=== PATIENT | male | born 1985 | race African-American/Black ===

== ENCOUNTER 2016-12-20 08:10 | Day surgery (SDC) | payer OTHER ==
[2016-12-18 11:35] VITALS: BMI 27.6
[~2016-12-20 08:10] MED LIST: LACTATED RINGERS 1,000 ML IV SCH; LIDOCAINE 1% 20 ML VIAL (10MG/ML) FOR IV START INTRADERMA PRN
[2016-12-20 08:29] VITALS: RESP 16; TEMP 96.8
[2016-12-20] MEDS ORDERED: fentaNYL (PF) 50 MCG/ML 2 ML AMP ONE (10:11)
[2016-12-20] MEDS ORDERED: MIDAZOLAM 2 MG/2 ML VIAL ONE (10:11)
[2016-12-20] MEDS ORDERED: PROPOFOL 10 MG/ML 20 ML VIAL IV ONE (10:11)
--- NOTE | 2016-12-20 10:30 | P.GSHP ---
History of Present Illness H&P Date: 12/20/16 Chief Complaint: GI bleed, abdominal pain This is a 31-year-old male referred from Dr. Jayro Tavera. Patient presents today for EGD and colonoscopy. He's had issues with rectal bleeding and epigastric dull pain. Past Medical History Additional Past Medical History / Comment(s): HAS BEEN HAVING EPISODES OF BLOODY STOOLS FOR THE PAST 3 WEEKS, ALONG WITH HEARTBURN AND ABD. PAIN History of Any Multi-Drug Resistant Organisms: None Reported Additional Past Surgical History / Comment(s): COLONOSCOPY AND EGD Past Anesthesia/Blood Transfusion Reactions: No Reported Reaction Past Psychological History: ADD/ADHD Smoking Status: Current every day smoker Past Alcohol Use History: Occasional Additional Past Alcohol Use History / Comment(s): SMOKES 1/2 PPD SINCE 2012 Past Drug Use History: None Reported - Past Family History Mother Family Medical History: No Reported History Medications and Allergies Home Medications Medication Instructions Recorded Confirmed Type Lisdexamfetamine Dimesylate 40 mg PO QAM 12/18/16 12/20/16 History [Charlie] Allergies Allergy/AdvReac Type Severity Reaction Status Date / Time No Known Allergies Allergy Verified 12/18/16 11:31 Surgical - Exam Vital Signs Temp Pulse Resp BP Pulse Ox 96.8 F L 69 16 133/86 99 12/20/16 08:27 12/20/16 08:27 12/20/16 08:27 12/20/16 08:27 12/20/16 08:27 - General well developed, no distress - Eyes PERRL - ENT normal pinna - Neck no masses - Respiratory normal expansion - Cardiovascular Rhythm: regular - Abdomen Abdomen: soft Assessment and Plan Plan: GI bleed, rectal bleeding abdominal pain. We'll perform EGD colonoscopy.
--- NOTE | 2016-12-20 10:45 | P.OP ---
Date of Procedure: 12/20/16 Preoperative Diagnosis: GI bleed, epigastric dull pain Postoperative Diagnosis: Antral gastritis Duodenitis Hiatal hernia Esophagitis Normal colon Procedure(s) Performed: EGD Colonoscopy Anesthesia: MAC Surgeon: Hai Bustos Pathology: other (Duodenum, antrum, esophagus) Condition: stable Disposition: PACU Description of Procedure: PROCEDURE: The patient was placed on the endoscopy table in the lateral position. Digital rectal examination was performed which revealed no abnormalities. The prostate was symmetrical without nodules. Flexible colonoscope was then placed in the patient's anus and passed throughout the entire colon. The ileocecal valve was visualized. The cecum, ascending, transverse, descending and sigmoid colon were normal. The rectum was normal as well. There were no masses, polyps or diverticula noted in the entire colon. Next the gastroscope placed oropharynx and passed into the esophagus and into the stomach. Scope was then placed through the pylorus. The first and second portion of the appeared mildly inflamed a biopsies performed. Scope was then brought back the antrum and there is evidence of mild ulceration of the antrum this area is biopsied. The scope was then retroflexed and the remainder of the stomach appeared normal. There was a hiatal hernia seen. The GE junction was at 40 cm. The distal esophagus appeared mildly inflamed and a biopsies performed. The proximal esophagus. Normal. Scope was withdrawn for patient.
[2016-12-20 11:17] VITALS: BP 137/79; PULSE 70
== END 2016-12-20 11:44 | disposition home or self-care (01) ==
LOC: ORWHC2ENDO 08:10
PROVIDERS: ATTEND Surgery
DX: K20.0 Eosinophilic esophagitis (principal); K29.50 Unspecified chronic gastritis without bleeding; K44.9 Diaphragmatic hernia without obstruction or gangrene; K29.80 Duodenitis without bleeding; K62.5 Hemorrhage of anus and rectum; F17.200 Nicotine dependence, unspecified, uncomplicated; F90.9 Attention-deficit hyperactivity disorder, unspecified type; Z79.899 Other long term (current) drug therapy
CPT/HCPCS: 45378; 43239; J2250; J3010; J2704; 88305; 88342

== ENCOUNTER 2019-07-12 03:44 | Emergency (ER) | payer BC, OTHER ==
[2019-07-12 03:57] VITALS: RESP 18; TEMP 98.2
--- NOTE | 2019-07-12 05:02 | ED ---
Wound/Laceration HPI - General Chief Complaint: Wound/Laceration Stated Complaint: leg lac Time Seen by Provider: 07/12/19 03:47 Source: patient Mode of arrival: ambulatory Limitations: no limitations - History of Present Illness Initial Comments: This patient is 33-year-old man who presents to be evaluated for a laceration to the right lower leg. Patient states that he was descending on a ladder and struck his gaxiola against the edge of the ladder. He states that this caused a cut to the leg and that it would not stop bleeding at home so he presented here for evaluation. The patient does believe that his last tetanus shot was between 5 and 10 years ago. He is declining to have one tonight. The patient denies weakness or numbness distal to the injury. No other injury -: hour(s) Extremity Location: Right: Lower Leg Place: home Patient Tetanus UTD: Yes Context: accidental Associated Symptoms: none Treatments Prior to Arrival: bandage - Related Data Home Medications Medication Instructions Recorded Confirmed Lisdexamfetamine Dimesylate 40 mg PO QAM 12/18/16 12/20/16 [Vyvanse] Previous Rx's Medication Instructions Recorded Omeprazole 40 mg PO DAILY #60 capsule. 12/20/16 Allergies Allergy/AdvReac Type Severity Reaction Status Date / Time No Known Allergies Allergy Verified 07/12/19 03:54 Review of Systems ROS Statement: Those systems with pertinent positive or pertinent negative responses have been documented in the HPI. ROS Other: All systems not noted in ROS Statement are negative. Musculoskeletal: Denies: joint swelling, arthralgia Skin: Reports: as per HPI (Laceration) Hematological/Lymphatic: Denies: easy bleeding Past Medical History Additional Past Medical History / Comment(s): HAS BEEN HAVING EPISODES OF BLOODY STOOLS FOR THE PAST 3 WEEKS, ALONG WITH HEARTBURN AND ABD. PAIN History of Any Multi-Drug Resistant Organisms: None Reported Additional Past Surgical History / Comment(s): COLONOSCOPY AND EGD Past Anesthesia/Blood Transfusion Reactions: No Reported Reaction Past Psychological History: ADD/ADHD Smoking Status: Current every day smoker Past Alcohol Use History: Occasional Past Drug Use History: None Reported - Past Family History Mother Family Medical History: No Reported History General Exam Limitations: no limitations General appearance: alert, in no apparent distress Extremities exam: Present: normal capillary refill. Absent: tenderness Skin exam: Present: warm, dry, normal color, other (Approximately 2.5 cm laceration to the pretibial area of the right leg. No neurovascular deficit.). Absent: rash Course Vital Signs 07/12/19 03:52 Temperature 98.2 F Pulse Rate 93 Respiratory 18 Rate Blood Pressure 158/108 O2 Sat by Pulse 98 Oximetry Procedures - Laceration Laceration #1 Consent Obtained: verbal consent Indication: laceration Site: lower extremity Description: linear Depth: simple, single layer Anesthetic Used: lidocaine 1% Anesthesia Technique: local infiltration Type of Sutures: nylon Size of Sutures: 4-0 Number of Sutures: 3 Technique: simple, interrupted Patient Tolerated Procedure: well, no complications Disposition Clinical Impression: Laceration Disposition: HOME SELF-CARE Condition: Good Instructions (If sedation given, give patient instructions): Laceration (DC) Is patient prescribed a controlled substance at d/c from ED?: No Referrals: Jayro Kaufman DO [Primary Care Provider] - 1-2 days
[2019-07-12] MEDS ORDERED: LIDOCAINE 1% INJ 10MG/ML (20 ML MDV) SQ ONE (05:27)
[2019-07-12 05:54] VITALS: BP 155/96; PULSE 90
== END 2019-07-12 05:54 | disposition home or self-care (01) ==
LOC: EC 03:44
DX: S81.811A Laceration without foreign body, right lower leg, initial encounter (principal); F90.9 Attention-deficit hyperactivity disorder, unspecified type; F17.200 Nicotine dependence, unspecified, uncomplicated; Z79.899 Other long term (current) drug therapy; W26.8XXA Contact with other sharp object(s), not elsewhere classified, initial encounter
CPT/HCPCS: 99282; 12001; J2001

== ENCOUNTER 2019-10-26 10:37 | Day surgery (SDC) | payer BC ==
[2019-10-23 09:28] VITALS: BMI 28.0
[~2019-10-26 10:37] MED LIST changes: -LIDOCAINE 1% 20 ML VIAL (10MG/ML) FOR IV START INTRADERMA PRN
[2019-10-26 11:00] VITALS: TEMP 96.6
[2019-10-26] MEDS ORDERED: LIDOCAINE 1% (10MG/ML) FOR IV START INTRADERMA ONE (11:05)
--- NOTE | 2019-10-26 11:55 | P.GSHP ---
History of Present Illness H&P Date: 10/26/19 Chief Complaint: GERD, GI bleed This is a 33-year-old male who presents today for EGD and colonoscopy. Patient history of GERD. And GI bleed Bleed. Past Medical History Additional Past Medical History / Comment(s): HAS BEEN HAVING EPISODES OF BLOODY STOOLS FOR THE PAST 3 WEEKS, ALONG WITH HEARTBURN AND ABD. PAIN History of Any Multi-Drug Resistant Organisms: None Reported Additional Past Surgical History / Comment(s): COLONOSCOPY AND EGD Past Anesthesia/Blood Transfusion Reactions: No Reported Reaction Smoking Status: Current every day smoker - Past Family History Mother Family Medical History: No Reported History Medications and Allergies Home Medications Medication Instructions Recorded Confirmed Type Lisdexamfetamine Dimesylate 40 mg PO QAVivian 12/18/16 10/26/19 History [Vyvanse] Omeprazole 40 mg PO DAILY #60 capsule. 12/20/16 10/26/19 Rx Allergies Allergy/AdvReac Type Severity Reaction Status Date / Time No Known Allergies Allergy Verified 10/23/19 09:21 Surgical - Exam Vital Signs Temp Pulse Resp BP Pulse Ox 96.6 F L 73 16 153/96 100 10/26/19 10:52 10/26/19 10:52 10/26/19 10:52 10/26/19 10:52 10/26/19 10:52 - General well developed, well nourished, no distress - Eyes PERRL - ENT normal pinna - Neck no masses - Respiratory normal expansion - Cardiovascular Rhythm: regular - Abdomen Abdomen: soft, non tender Assessment and Plan Assessment: GERD, GI bleed. We'll perform EGD and colonoscopy.
[2019-10-26] MEDS ORDERED: LIDOCAINE 1% INJ 10MG/ML (20 ML MDV) ONE (12:14)
[2019-10-26] MEDS ORDERED: PROPOFOL 10 MG/ML 20 ML VIAL IV ONE (12:14)
[2019-10-26] MEDS ORDERED: ENALAPRILAT 1.25 MG/ML 1 ML VIAL IVP ONE ×2 (13:05→13:25)
[2019-10-26 13:53] VITALS: BP 142/90; PULSE 77; RESP 17
--- NOTE | 2019-10-27 12:13 | P.OP ---
Date of Procedure: 10/26/19 Preoperative Diagnosis: GERD GI bleed Postoperative Diagnosis: Antral gastritis Mild esophagitis External hemorrhoids Normal colon Procedure(s) Performed: EGD Colonoscopy Anesthesia: MAC Surgeon: Hai Bustos Pathology: other (Antrum, esophagus) Condition: stable Disposition: PACU Description of Procedure: Patient's placed on the endoscopy table lateral position. She received IV sedation. The gastroscope placed oropharynx passed in the esophagus into the stomach. Scope was placed through the pylorus. The first and second portion of duodenum appeared normal. Scope summer back the antrum this. Mildly inflamed. A biopsies performed. Scope was unretroflexed and remainder stomach appeared normal. The GE junction was at 40 cm. The distal esophagus. Minimal plan a biopsies performed. The proximal esophagus appeared normal. Scope was withdrawn for patient. There is no evidence of any upper GI bleed. Next, digital rectal exam was performed which revealed external hemorrhoids. The colonoscope was then placed patient anus passed rotator entire colon. The ileocecal valve lesions. The cecum, ascending and transverse colon appeared normal. The descending and sigmoid: Appeared normal. Scope was brought back the rectum and this appeared normal. Scope was withdrawn through the anus and there is external hemorrhoids noted. Scope was withdrawn for patient.
== END 2019-10-26 13:56 | disposition home or self-care (01) ==
LOC: ORWHC2ENDO 10:37
PROVIDERS: ATTEND Surgery
DX: B96.81 Helicobacter pylori [H. pylori] as the cause of diseases classified elsewhere (principal); K29.51 Unspecified chronic gastritis with bleeding; K21.0 Gastro-esophageal reflux disease with esophagitis; K64.4 Residual hemorrhoidal skin tags; F90.9 Attention-deficit hyperactivity disorder, unspecified type; F17.200 Nicotine dependence, unspecified, uncomplicated; Z79.899 Other long term (current) drug therapy
CPT/HCPCS: 88305; 88342; 45378; 43239; J2001; J2704

== ENCOUNTER 2024-09-01 19:43 | Emergency (ER) | payer BC ==
--- NOTE | 2024-09-01 20:15 | ED ---
General Adult HPI - General Chief complaint: Upper Respiratory Infection Stated complaint: KANIKA Time Seen by Provider: 09/01/24 20:14 Source: patient, family, RN notes reviewed Mode of arrival: ambulatory Limitations: no limitations - History of Present Illness Initial comments: 38-year-old male presented the ER several urgent care for evaluation of cough, fever and hiccups. Patient reports he woke up this morning feeling unwell and weak. Significant other, at bedside, states he was able to take her child to the doctors and when coming home he took a nap. She states upon waking up he was "worse". Patient also reports persistent hiccups since noon. He states for the past 24 hours he has been endorsing cough, congestion, sore throat and runny nose along with fevers. He has not taken anything for symptoms at this time. He also admits to shortness of breath denies any chest discomfort. No abdominal pain, diarrhea, constipation, urinary complaints or vomiting. Patient does report he is mildly nauseous. Family states she is having to help him ambulate as he has been so weak. - Related Data Home Medications Medication Instructions Recorded Confirmed Lisdexamfetamine Dimesylate 40 mg PO QAM 12/18/16 10/26/19 [Vyvanse] Previous Rx's Medication Instructions Recorded Omeprazole 40 mg PO DAILY #60 capsule. 12/20/16 Oseltamivir [Tamiflu] 75 mg PO Q12HR #10 cap 09/01/24 Allergies Allergy/AdvReac Type Severity Reaction Status Date / Time No Known Allergies Allergy Verified 09/01/24 20:00 Review of Systems ROS Statement: Those systems with pertinent positive or pertinent negative responses have been documented in the HPI. ROS Other: All systems not noted in ROS Statement are negative. Past Medical History Additional Past Medical History / Comment(s): HAS BEEN HAVING EPISODES OF BLOODY STOOLS FOR THE PAST 3 WEEKS, ALONG WITH HEARTBURN AND ABD. PAIN History of Any Multi-Drug Resistant Organisms: None Reported Additional Past Surgical History / Comment(s): COLONOSCOPY AND EGD Past Anesthesia/Blood Transfusion Reactions: No Reported Reaction Past Psychological History: ADD/ADHD Smoking Status: Current every day smoker Past Alcohol Use History: Occasional Past Drug Use History: Marijuana - Past Family History Mother Family Medical History: No Reported History General Exam Limitations: no limitations General appearance: alert, in no apparent distress, other (Actively hiccuping) ENT exam: Present: normal exam, normal oropharynx, mucous membranes moist, TM's normal bilaterally Respiratory exam: Present: normal lung sounds bilaterally. Absent: respiratory distress, wheezes, rales, rhonchi, stridor Cardiovascular Exam: Present: normal rhythm, tachycardia, normal heart sounds GI/Abdominal exam: Present: soft, normal bowel sounds. Absent: distended, tenderness, guarding, rebound, rigid Extremities exam: Present: normal inspection, full ROM, normal capillary refill. Absent: tenderness, pedal edema, joint swelling, calf tenderness Neurological exam: Present: alert, oriented X3, CN II-XII intact Skin exam: Present: warm, dry, intact, normal color, diaphoretic (mild). Absent: rash Course Vital Signs 09/01/24 09/01/24 19:57 22:24 Temperature 101.7 F H 98.5 F Pulse Rate 123 H 116 H Respiratory 18 18 Rate Blood Pressure 132/59 162/98 O2 Sat by Pulse 97 98 Oximetry EKG Findings - EKG Comments: EKG Findings:: EKG taken at 21: 06 showing sinus tachycardia. No ST segment or T wave abnormalities. Ventricular rate 127, [place] interval 155, QRS duration 94, QT/QTc 289/364. EKG taken at 22: 32 showing a sinus tachycardia no acute ST segment or T wave abnormalities. Ventricular rate 119, [place] interval 161, QRS duration 93, QT/QTc 301/372. Medical Decision Making - Medical Decision Making Was pt. sent in by a medical professional or institution (, PA, DIRECTOR OF WEB MARKETING, urgent care, hospital, or prison...) When possible be specific @ -No Did you speak to anyone other than the patient for history (EMS, parent, family, police, friend...)? What history was obtained from this source @ -Patient's significant other, at bedside, aiding in HPI and past medical history. Did you review nursing and triage notes (agree or disagree)? Why? @ -I reviewed and agree with nursing and triage notes Were old charts reviewed (outside hosp., previous admission, EMS record, old EKG, old radiological studies, urgent care reports/EKG's, prison records)? Report findings @ -No old charts were reviewed Differential Diagnosis (chest pain, altered mental status, abdominal pain women, abdominal pain men, vaginal bleeding, weakness, fever, dyspnea, syncope, headache, dizziness, GI bleed, back pain, seizure, CVA, palpatations, mental health, musculoskeletal)? @ -Differential Fever:Pneumonia, viral URI, endocarditis, myocarditis, pericarditis, otitis, sinusitis, peritonsillar Abscess, retropharyngeal Abscess, epiglottitis, peritonitis, appendicitis, Ira cystitis, diverticulitis, hepatitis, colitis, UTI, PID, TOA, pyelonephritis, prostatitis, epididymitis, meningitis, encephalitis, pulmonary embolism, CVA, thyroid storm, pancreatitis, adrenal crisis, cavernous sinus thrombosis, this is not meant to be an all- inclusive list. EKG interpreted by me (3pts min.). @ -As above X-rays interpreted by me (1pt min.). @ -CXR interpreted me negative for acute focal consolidations. CT interpreted by me (1pt min.). @ -None done U/S interpreted by me (1pt. min.). @ -None done What testing was considered but not performed or refused? (CT, X-rays, U/S, labs)? Why? @ -None What meds were considered but not given or refused? Why? @ -None Did you discuss the management of the patient with other professionals (pro fessionals i.e. , PA, DIRECTOR OF WEB MARKETING, lab, RT, psych nurse, social media editor, infection control specialist, teacher, veterans service officer, employment evaluator/case manager)? Give summary @ -No Was smoking cessation discussed for >3mins.? @ -No Was critical care preformed (if so, how long)? @ -No Were there social determinants of health that impacted care today? How? (Homelessness, low income, unemployed, alcoholism, drug addiction, transportation, low edu. Level, literacy, decrease access to med. care, correction, rehab)? @ -No Was there de-escalation of care discussed even if they declined (Discuss DNR or withdrawal of care, Hospice)? DNR status @ -No What co-morbidities impacted this encounter? (DM, HTN, Smoking, COPD, CAD, Cancer, CVA, ARF, Chemo, Hep., AIDS, mental health diagnosis, sleep apnea, morbid obesity)? @ -None Was patient admitted / discharged? Hospital course, mention meds given and route, prescriptions, significant lab abnormalities, going to OR and other pertinent info. @ -Discharge. 38-year-old male presented the ER for evaluation of cough, fever and hiccups. History and physical exam completed. Patient febrile upon arrival at 101.7F with associated tachycardia at 123 bpm. Vitals otherwise within acceptable limits. Patient appears mildly diaphoretic and is actively hiccuping on exam. Otherwise exam benign. Laboratory studies obtained showing a WBC of 9.3, lactic 1.6. Influenza A+. EKG showing sinus tachycardia no acute ST segment or T wave abnormalities. Given concern of myocarditis with tachycardia and influenza A positive, troponin obtained and undetectable. Chest x-ray negative. Patient given 1 L IV fluids along with Reglan, Toradol and Tylenol for fever and symptom control in the ER. Hiccups resolved. Upon reevaluation, patient resting company on stretcher no signs of acute distress. Results discussed with patient and significant other, at bedside, all questions answered. Tamiflu prescribed. Conservative treatment options discussed. Patient is stable for discharge. Strict return parameters discussed. Patient discharged in stable condition with follow-up to PCP. Patient verbally expressed understanding and agreement with care plan. Case discussed with ED attending, Dr. Villanueva. Undiagnosed new problem with uncertain prognosis? @ -No Drug Therapy requiring intensive monitoring for toxicity (Heparin, Nitro, Insulin, Cardizem)? @ -No Were any procedures done? @ -No Diagnosis/symptom? @ -Influenza A/acute viral sinusitis Acute, or Chronic, or Acute on Chronic? @ -Acute Uncomplicated (without systemic symptoms) or Complicated (systemic symptoms)? @ -Complicated Side effects of treatment? @ -No Exacerbation, Progression, or Severe Exacerbation? @ -No Poses a threat to life or bodily function? How? (Chest pain, USA, GA, pneumonia, PE, COPD, DKA, ARF, appy, cholecystitis, CVA, Diverticulitis, Homicidal, Suicidal, threat to staff... and all critical care pts) @ -No - Lab Data Result diagrams: 09/01/24 20:35 09/01/24 20:35 Lab Results 09/01/24 09/01/24 09/01/24 Range/Units 20:18 20:35 20:35 WBC 9.3 (3.8-10.6) k/uL RBC 6.12 H (4.30-5.90) m/uL Hgb 17.2 (13.0-17.5) gm/dL Hct 53.5 H (39.0-53.0) % MCV 87.3 (80.0-100.0) fL MCH 28.2 (25.0-35.0) pg MCHC 32.3 (31.0-37.0) g/dL RDW 13.5 (11.5-15.5) % Plt Count 267 (150-450) k/uL MPV 7.9 Neutrophils % 83 % Lymphocytes % 5 % Monocytes % 9 % Eosinophils % 1 % Basophils % 0 % Neutrophils # 7.7 (1.3-7.7) k/uL Lymphocytes # 0.5 L (1.0-4.8) k/uL Monocytes # 0.8 (0-1.0) k/uL Eosinophils # 0.1 (0-0.7) k/uL Basophils # 0.0 (0-0.2) k/uL Sodium 136 L (137-145) mmol/L Potassium 5.1 (3.5-5.1) mmol/L Chloride 102 (98-107) mmol/L Carbon Dioxide 26 (22-30) mmol/L Anion Gap 8 mmol/L BUN 7 L (9-20) mg/dL Creatinine 1.02 (0.66-1.25) mg/dL Est GFR (CKD-EPI)AfAm >90 (>60 ml/min/1.73 sqM) Est GFR (CKD-EPI)NonAf >90 (>60 ml/min/1.73 sqM) Glucose 101 H (74-99) mg/dL Plasma Lactic Acid Jatin (0.7-2.0) mmol/L Calcium 9.6 (8.4-10.2) mg/dL Total Bilirubin 0.3 (0.2-1.3) mg/dL AST 28 (17-59) U/L ALT 27 (4-49) U/L Alkaline Phosphatase 87 (38-126) U/L Troponin I (0.000-0.034) ng/mL Total Protein 7.9 (6.3-8.2) g/dL Albumin 4.8 (3.5-5.0) g/dL Influenza Type A (PCR) Detected A (Not Detectd) Influenza Type B (PCR) Not Detected (Not Detectd) RSV (PCR) Not Detected (Not Detectd) SARS-CoV-2 (PCR) Not Detected (Not Detectd) 09/01/24 09/01/24 Range/Units 20:35 22:54 WBC (3.8-10.6) k/uL RBC (4.30-5.90) m/uL Hgb (13.0-17.5) gm/dL Hct (39.0-53.0) % MCV (80.0-100.0) fL MCH (25.0-35.0) pg MCHC (31.0-37.0) g/dL RDW (11.5-15.5) % Plt Count (150-450) k/uL MPV Neutrophils % % Lymphocytes % % Monocytes % % Eosinophils % % Basophils % % Neutrophils # (1.3-7.7) k/uL Lymphocytes # (1.0-4.8) k/uL Monocytes # (0-1.0) k/uL Eosinophils # (0-0.7) k/uL Basophils # (0-0.2) k/uL Sodium (137-145) mmol/L Potassium (3.5-5.1) mmol/L Chloride (98-107) mmol/L Carbon Dioxide (22-30) mmol/L Anion Gap mmol/L BUN (9-20) mg/dL Creatinine (0.66-1.25) mg/dL Est GFR (CKD-EPI)AfAm (>60 ml/min/1.73 sqM) Est GFR (CKD-EPI)NonAf (>60 ml/min/1.73 sqM) Glucose (74-99) mg/dL Plasma Lactic Acid Jatin 1.6 (0.7-2.0) mmol/L Calcium (8.4-10.2) mg/dL Total Bilirubin (0.2-1.3) mg/dL AST (17-59) U/L ALT (4-49) U/L Alkaline Phosphatase (38-126) U/L Troponin I <0.012 (0.000-0.034) ng/mL Total Protein (6.3-8.2) g/dL Albumin (3.5-5.0) g/dL Influenza Type A (PCR) (Not Detectd) Influenza Type B (PCR) (Not Detectd) RSV (PCR) (Not Detectd) SARS-CoV-2 (PCR) (Not Detectd) - Radiology Data Radiology results: report reviewed, image reviewed Disposition Clinical Impression: Influenza A, Acute viral sinusitis Disposition: HOME SELF-CARE Condition: Stable Instructions (If sedation given, give patient instructions): Influenza (DC) Additional Instructions: I recommend [id number] ibuprofen and Tylenol for fever control. Follow-up with PCP. Return to the ER for any new or worsening concerns. Prescriptions: Oseltamivir [Tamiflu] 75 mg PO Q12HR #10 cap Is patient prescribed a controlled substance at d/c from ED?: No Referrals: None,Stated [Primary Care Provider] - 1-2 days Time of Disposition: 23:32
[2024-09-01] MEDS: ACETAMINOPHEN TAB 500 MG TAB PO STA (20:36)
[2024-09-01] MEDS: METOCLOPRAMIDE 5 MG/ML 2 ML VIAL IVP STA (20:37)
[2024-09-01] MEDS: SODIUM CHLORIDE 0.9% 1,000 ML IV STA (20:38)
--- NOTE | 2024-09-01 21:01 | XR ---
EXAMINATION TYPE: XR chest 2V DATE OF EXAM: 09/01/2024 8:53 PM COMPARISON: None. CLINICAL INDICATION: Male, 38 years old with history of fever/ cough, TECHNIQUE: XR chest 2V view(s) obtained. FINDINGS: The heart size is normal. The pulmonary vasculature is normal. The lungs are clear. IMPRESSION: 1. No acute pulmonary process. [facility], , 09/01/2024 8:59 PM
[2024-09-01 21:03] LABS: ALT 27 U/L (4-49); AST 28 U/L (17-59); African American GFR (CKD) >90 (>60 ml/min/1.73 sqM); Albumin 4.8 g/dL (3.5-5.0); Alkaline Phosphatase 87 U/L (38-126); Anion Gap 8 mmol/L; Blood Urea Nitrogen 7 mg/dL (9-20); Calcium 9.6 mg/dL (8.4-10.2); Carbon Dioxide 26 mmol/L (22-30); Chloride 102 mmol/L (98-107); Glucose 101 mg/dL (74-99); Non-African American GFR(CKD) >90 (>60 ml/min/1.73 sqM); Potassium 5.1 mmol/L (3.5-5.1); Sodium 136 mmol/L (137-145); Total Bilirubin 0.3 mg/dL (0.2-1.3); Total Protein 7.9 g/dL (6.3-8.2)
[2024-09-01] MEDS: KETOROLAC 15 MG/ML 1 ML VIAL IVP STA (21:20)
[2024-09-01 21:32] LABS: Basophils % (A) 0 %; Eosinophils # (A) 0.1 k/uL (0-0.7); Eosinophils % (A) 1 %; HCT 53.5 % (39.0-53.0); HGB 17.2 gm/dL (13.0-17.5); Lymphocytes # (A) 0.5 k/uL (1.0-4.8); Lymphocytes % (A) 5 %; MCH 28.2 pg (25.0-35.0); MCHC 32.3 g/dL (31.0-37.0); MCV 87.3 fL (80.0-100.0); Mean Platelet Volume 7.9; Monocytes # (A) 0.8 k/uL (0-1.0); Monocytes % (A) 9 %; Neutrophils # (A) 7.7 k/uL (1.3-7.7); Neutrophils % (A) 83 %; Platelet Count 267 k/uL (150-450); RBC 6.12 m/uL (4.30-5.90); RDW 13.5 % (11.5-15.5); WBC 9.3 k/uL (3.8-10.6)
[2024-09-01 23:52] VITALS: BP 151/89; PULSE 105; RESP 16; TEMP 98.9
== END 2024-09-01 23:52 | disposition home or self-care (01) ==
LOC: EC 19:43
DX: J10.1 Influenza due to other identified influenza virus with other respiratory manifestations (principal); J01.90 Acute sinusitis, unspecified; B97.89 Other viral agents as the cause of diseases classified elsewhere; F17.200 Nicotine dependence, unspecified, uncomplicated
CPT/HCPCS: 36415; 93005; 80053; 83605; 84484; 85025; 87636; 71046; 99285; 96374; 96375; 96361; J2765; J1885